=== PATIENT | male | born 1990 | race Two or more races ===

== ENCOUNTER 2023-05-25 19:33 | Emergency (ER) | payer MEDICAID, OTHER ==
[~2023-05-25] VITALS: Ht 167.6 cm; Wt 85.2 kg
[2023-05-25 19:33] VITALS: BP 142/92; PULSE 93; RESP 18; TEMP 98.3
[2023-05-25] MEDS ORDERED: CEPH500C PO (20:54)
[2023-05-25] MEDS ORDERED: diphenhdrAMINE HCL 50 MG/1 ML VL IM ONE (21:00)
[2023-05-25] MEDS ORDERED: DexAMETHasone SOD PHOS 10MG/1ML VIAL INJ IM ONE (21:00)
[2023-05-25 21:02] VITALS: O2SAT 96
== END 2023-05-25 21:34 | disposition home or self-care (01) ==
LOC: ER 19:33
DX: L25.9 Unspecified contact dermatitis, unspecified cause (principal)
CPT/HCPCS: 96372; 99284; J1100; J1200